=== PATIENT | male | born 1955 | race Two or more races ===

== ENCOUNTER 2017-06-29 21:34 | Emergency (ER) | payer SELFPAY ==
[~2017-06-29] VITALS: Ht 182.9 cm; Wt 85.2 kg
[2017-06-30] MEDS ORDERED: BACTRIM DS1 TAB PO (00:22)
[2017-06-30 03:28] VITALS: BP 180/110
== END 2017-06-30 01:40 | disposition home or self-care (01) | DRG 603 ==
LOC: ED 21:34
PROC: 0H9BXZZ Drainage of Right Upper Arm Skin, External Approach (ICD-10-PCS; principal; 2017-06-29)
DX: L02.413 Cutaneous abscess of right upper limb (principal); M79.5 Residual foreign body in soft tissue

== ENCOUNTER 2017-07-01 15:00 | Emergency (ER) | payer SELFPAY ==
[~2017-07-01] VITALS: Ht 182.9 cm; Wt 84.0 kg
[~2017-07-01 15:00] MED LIST: BACTRIM DS1 TAB PO
[2017-07-01 15:55] VITALS: BP 179/99
== END 2017-07-01 15:55 | disposition home or self-care (01) | DRG 951 ==
LOC: ED 15:00
DX: Z48.01 Encounter for change or removal of surgical wound dressing (principal); I10 Essential (primary) hypertension

== ENCOUNTER 2017-07-02 19:14 | Emergency (ER) | payer SELFPAY ==
[~2017-07-02] VITALS: Ht 182.9 cm; Wt 85.8 kg
[2017-07-02 20:27] VITALS: BP 152/89
== END 2017-07-02 20:27 | disposition home or self-care (01) | DRG 951 ==
LOC: ED 19:14
DX: Z48.01 Encounter for change or removal of surgical wound dressing (principal)

== ENCOUNTER 2017-07-05 19:39 | Emergency (ER) | payer SELFPAY ==
[~2017-07-05] VITALS: Ht 182.9 cm; Wt 81.0 kg
[2017-07-05] MEDS ORDERED: CEPHALEXIN500 MG PO (20:24)
[2017-07-05 20:38] VITALS: BP 184/94
== END 2017-07-05 20:38 | disposition home or self-care (01) | DRG 951 ==
LOC: ED 19:39
DX: Z48.01 Encounter for change or removal of surgical wound dressing (principal); I10 Essential (primary) hypertension

== ENCOUNTER 2017-07-07 18:05 | Emergency (ER) | payer SELFPAY ==
[~2017-07-07] VITALS: Ht 182.9 cm; Wt 86.0 kg
[~2017-07-07 18:05] MED LIST changes: +CEPHALEXIN500 MG PO
[2017-07-07 18:45] VITALS: BP 154/54
== END 2017-07-07 18:50 | disposition home or self-care (01) | DRG 951 ==
LOC: ED 18:05
DX: Z48.01 Encounter for change or removal of surgical wound dressing (principal)

== ENCOUNTER 2017-07-08 19:48 | Emergency (ER) | payer SELFPAY ==
[~2017-07-08] VITALS: Ht 182.9 cm; Wt 83.6 kg
[2017-07-08 23:45] VITALS: BP 162/97
== END 2017-07-08 23:48 | disposition home or self-care (01) | DRG 951 ==
LOC: ED 19:48
DX: Z48.01 Encounter for change or removal of surgical wound dressing (principal); M79.5 Residual foreign body in soft tissue; I10 Essential (primary) hypertension

== ENCOUNTER 2017-07-10 19:21 | Emergency (ER) | payer SELFPAY ==
[~2017-07-10] VITALS: Ht 182.9 cm; Wt 83.8 kg
[2017-07-10 20:06] VITALS: BP 159/90
== END 2017-07-10 20:14 | disposition home or self-care (01) | DRG 950 ==
LOC: ED 19:21
DX: S41.101D Unspecified open wound of right upper arm, subsequent encounter (principal); L08.9 Local infection of the skin and subcutaneous tissue, unspecified; X58.XXXD Exposure to other specified factors, subsequent encounter; B95.7 Other staphylococcus as the cause of diseases classified elsewhere

== ENCOUNTER 2018-07-26 10:28 | Emergency (ER) | payer SELFPAY ==
[~2018-07-26] VITALS: Ht 182.9 cm; Wt 102.0 kg
[2018-07-26] MEDS ORDERED: DICLOFENAC50 MG PO (13:34)
[2018-07-26] MEDS ORDERED: MEDDOSEPAK PO (13:34)
[2018-07-26 13:43] VITALS: BP 178/72
== END 2018-07-26 13:43 | disposition home or self-care (01) | DRG 556 ==
LOC: ED 10:28
DX: M25.562 Pain in left knee (principal); M25.561 Pain in right knee; I10 Essential (primary) hypertension